=== PATIENT | male | born 1960 | race Caucasian/White ===

== ENCOUNTER 2018-02-25 17:46 | Observation (INO) | payer OTHER ==
[2018-02-25] MEDS ORDERED: ALBUTEROL 60 PUFFS/8 GM MDI IH PRN (19:56)
[2018-02-25] MEDS ORDERED: ALPRAZolam 0.25 MG TAB PO PRN (19:56)
[2018-02-25] MEDS ORDERED: ACETAMINOPHEN 325 MG TAB PO PRN (19:58)
[2018-02-25] MEDS ORDERED: ONDANSETRON 4 MG/2 ML VIAL IVP PRN (19:58)
[2018-02-25] MEDS ORDERED: NITROGLYCERIN 0.4 MG BTL SL PRN (19:59)
--- NOTE | 2018-02-25 20:42 | CPEKG ---
Heart Rate: 72 RR Interval: 833 P-R Interval: 172 QRSD Interval: 148 QT Interval: 420 QTC Interval: 460 P [place]: 55 QRS [place]: 22 T Wave [place]: -40 EKG Severity - ABNORMAL ECG - EKG Impression: SINUS RHYTHM EKG Impression: RIGHT BUNDLE BRANCH BLOCK Electronically Signed By: Chuck Adams 26-Feb-2018 08:32:20
[2018-02-25] MEDS ORDERED: MONTELUKAST SODIUM 10 MG TAB PO SCH (21:00)
[2018-02-25] MEDS: ASPIRIN 81 MG CHEWABLE TAB PO SCH (21:57)
[2018-02-25] MEDS: FLUTICASONE NASAL 120 SPRAYS/16 GM MDI EACHNARE SCH (21:59)
[2018-02-25] MEDS: IPRATROPIUM/ALBUTEROL 3 ML DEYVIAL IH SCH (22:19)
[2018-02-25] MEDS: SODIUM CL NASAL 45 ML BTL EACHNARE SCH (22:20)
--- NOTE | 2018-02-25 22:29 | GHP ---
[f rep st] HISTORY AND PHYSICAL DATE OF ADMISSION: 02/25/2018 CHIEF COMPLAINT: Chest tightness and shortness of breath. HISTORY: The patient is a 57-year-old male who has been having progressive shortness of breath since October. He has also had some associated chest tightness. Through most of this he has assumed this was congestion due to his allergies and postnasal drip from his sinuses but it is just not going ramsey y and the last 2 weeks have been particularly bad. He describes a chest tightness in the middle of h is chest down to the right lower part of his chest that gets much worse with exertion and definitely better with rest. 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 Whenever he tries to play basketball per his usual schedule, he gets severely short of breath. He is exhausted at the end of e very day. He has had sinus congestion, postnasal drip, and his ears have been clogged up ever since October. This will occasionally cause a cough, mostly from postnasal drip. He has a nebulizer and a n inhaler at home although he has never been diagnosed with asthma. He has used them intermittently over this period of time but he has started on Singulair and increased his Claritin dose with some re lief although still remains uncontrolled. The chest pain is mostly nonpleuritic, however he does ene cribe after he runs up a flight of stairs, chest pain will worsen with deep inspiration. He feels ce rtain that he has undiagnosed obstructive sleep apnea because he has all the symptoms but he has neve r gotten a sleep study. Sometimes he will feel both bilateral forearms tingling. PAST MEDICAL HISTORY: 1. Hypertension. 2. Anxiety and panic disorder. 3. Obesity. 4. Gout. 5. Seasonal allergies. 6. Negative cardiac catheterization 2009. 7. Negative CT angiogram for PE 2014. MEDICATIONS: Please see computerized record for full detailed list. ALLERGIES: Codeine and penicillin. SOCIAL HISTORY: Never been a smoker. His mother was a very heavy smoker and of complications o f COPD but he does not remember her smoking much around him or his siblings while he was a child, thi nking that she was being conscientious regarding not exposing them. He occasionally drinks alcohol. He lives with his and they have 16-year-old twins. REVIEW OF SYSTEMS: Complete review of systems obtained. Review of systems negative regarding consti tutional, HEENT, GI, pulmonary, cardiovascular, , hematology, skin, muscular, endocrine, psych exce pt for positives as in HPI. FAMILY HISTORY: His father is still alive at age 91. His mother at age 68 of complications of COPD leading to congestive heart failure and he also suspects she had an underlying lung cancer. PHYSICAL EXAMINATION: GENERAL: Well-developed, well-nourished male, in no acute distress. VITAL SI GNS: Temperature 36.8, pulse 72, blood pressure 128/88, saturating 96% on room air. EYES: Normal c onjunctivae. Pupils react to light. ENT: Normal ears, nose. Hearing intact. Normal teeth. Oroph arynx moist. NECK: Trachea midline. No thyromegaly. CHEST: Normal effort. LUNGS: Clear to ausc ultation bilaterally. Although when he does cough I did elicit some wheeze with forced expiration. CARDIOVASCULAR: Regular rhythm. No murmur. Trace lower extremity edema. ABDOMEN: Soft, nontender . No hepatosplenomegaly. SKIN: Warm, dry, intact. No rash. MUSCULOSKELETAL: No cyanosis or club francisco j. Strength 5/5 upper and lower extremities. NEUROLOGIC: Cranial nerves intact. Normal sensati on to light touch. PSYCH: Alert and oriented x3. Normal affect. Normal judgment. Normal insight. Normal memory. LABORATORY DATA: White count 6.47, hematocrit 44.2, platelets 278. Sodium 141, potassium 4.8, chlor del 105, bicarb 26, BUN 17, creatinine 0.8, glucose 100. LFTs are normal. IMAGING PROCEDURE: EKG viewed by me. My personal interpretation is normal sinus rhythm with right b undle branch block. This right bundle branch block has been present in the past. Chest x-ray is pen ding. I spoke with Dr. Loretta Matthew who saw him in the clinic today and made decision for direct adm ission for further evaluation. ASSESSMENT/PLAN: 1. Chest pain: He has some very concerning features for angina, especially the fact that this chest tightness gets worse with exertion and better with rest. We will follow serial troponins and order a stress test for the morning. 2. Shortness of breath and severe dyspnea on exertion: I did check a D-dimer but it is really not a ll that elevated so I will hold off on a CT angiogram for PE for now. We will check a BNP and an ech ocardiogram to rule out other cardiac etiologies of shortness of breath. I also wonder whether he kadi borges have a very mild reactive airway disease issue and we will start him on a trial of empiric nebulize rs to see if there is any improvement. Will check a respiratory PCR. 3. Chronic sinusitis with postnasal drip: Will initiate Flonase and nasal saline. 4. Morbid obesity: Body mass index is 42. He admits to probably having obstructive sleep apnea but has never had a sleep study. He should pursue this as an outpatient. I would not be surprised if rosa lawler saw some pulmonary hypertension on his echo and this may be contributing to his shortness of breath of presentation. He should also be advised regarding weight loss. 5. Hypertension: Continue lisinopril. 6. Anxiety: Continue Xanax as needed. 7. Allergies: Continue Singulair and Zyrtec. CODE STATUS: Full. ADMISSION STATUS: Will admit to observation. Reevaluate tomorrow regarding ongoing need for hospita lization. DEEP VEIN THROMBOSIS PROPHYLAXIS: He is moderate risk. Will place on subcu Lovenox. /[id number]/MODL
[2018-02-26] MEDS: IPRATROPIUM/ALBUTEROL 3 ML DEYVIAL IH SCH ×4 (05:18→16:33)
[2018-02-26] MEDS ORDERED: CETIRIZINE 10 MG TAB PO SCH ×2 (09:00)
[2018-02-26] MEDS ORDERED: ENOXAPARIN 40 MG/0.4 ML SYR SC SCH ×2 (09:00→10:15)
[2018-02-26] MEDS ORDERED: LISINOPRIL 5 MG TAB PO SCH (09:00)
[2018-02-26] MEDS ORDERED: REGADENOSON 0.4 MG/5 ML SYR IVP ONE (09:40)
[2018-02-26] MEDS ORDERED: IOPAMIDOL (ISOVUE 370) 100 ML BTL IV ONE (10:14)
--- NOTE | 2018-02-26 10:24 | ECHO ---
[email or web address] [address] [address] Main: [phone] Fax: [email or web address] Echocardiogram Name: BÁRBARA ADDISON MR#: [id number] Study Date: 02/26/2018 Study Time: 07:29 AM Date of : 1960 Age: 57 year(s) Height: 182.9 cm (72 in.) Weight: 136.08 kg (300 lb.) BSA: 2.53 m2 Gender: Male Examination: Echo Indication: Shortness of breath Image Quality: Contrast: Requested by: Marge Ramos BP: 142 mmHg/90 mmHg Heart Rate: Rhythm: Indication: Shortness of breath Procedure Staff Assistant Community Manager: Gaston Rocha RDCS Reading Physician: Requesting Provider: Measurements: Chambers Valvular Assessment AV/MV Valvular Assessment TV/PV Normal Normal Normal Name Value Range Name Value Range Name Value Range Ao Nell (MM): 3.0 cm (2.2 cm-3.7 AV Vmax: 1.68 m/s (1 m/s-1.7 PV Vmax: 0.95 m/s (0.6 m/s-0.9 cm) m/s) m/s) IVSd (2D): 0.9 cm (0.6 cm-1.1 AV maxP mmHg ( - ) PV PGmax: 4 mmHg ( - ) cm) AV meanP mmHg ( - ) LVDd (2D): 5.4 cm (4.2 cm-5.9 LVOT Vmax: 0.89 m/s (0.7 m/s-1.1 cm) m/s) LVDs (2D): 3.6 cm (2.1 cm-4 MV E Vmax: 0.63 m/s ( - ) cm) MV A Vmax: 0.77 m/s ( - ) LVPWd (2D): 1.1 cm (0.6 cm-1 MV E/A: 0.82 ( - ) cm) LVEF (2D): 61 (>=54 %) Continued Measurements: Chambers Valvular Assessment AV/MV Name Value Name Value LADs Lon.3 cm MV E' Septal: 0.07 m/s LA Area: 20.9 cm2 MV E/E' Septal: 9.50 LA Volume: 61 ml MV E/E' Lateral: 10.00 LA Volume Index: 24.1 ml/m2 Findings: Left Ventricle: Normal size left ventricle. No LV hypertrophy. Normal global systolic LV function. EF is 61 %. No regional wall motion abnormality. Diastolic dysfunction is present. . Patient: BÁRBARA ADDISON Study Date: 02/26/2018 Page 1 of 2 07:29 AM Right Ventricle: Normal size right ventricle. Normal RV function. Left Atrium: The left atrium is mildly dilated. Right Atrium: The right atrium is normal in size. Mitral Valve: The mitral valve is normal in appearance and function. Trivial mitral valve regurgitation. Aortic Valve: The aortic valve is tri-leaflet. Minimal aortic cusp calcification is noted. Tricuspid Valve: The tricuspid valve is normal in appearance and function. Pulmonic Valve: The pulmonic valve is normal in appearance and function. Aorta: The aorta is normal. Pericardium: No pericardial effusion. (No Signature Object) Patient: BÁRBARA ADDISON Study Date: 02/26/2018 Page 2 of 2 07:29 AM [id number]
--- NOTE | 2018-02-26 11:11 | CPR ---
[f rep st] NONINVASIVE CARDIAC PROCEDURE REPORT DATE OF PROCEDURE: 02/26/2018 PROCEDURE: Exercise nuclear stress test. INDICATION: The patient is a 57-year-old male who presented to the hospital complaining of dyspnea o n exertion and chest pressure. The dyspnea on exertion was first noted approximately 5 months ago. It occurs with minimal exercise such as walking up a flight of stairs. He has experienced similar sy mptoms in the past secondary to allergies, but this is lasting longer and of worsening severity. His risk factors for coronary artery disease include hypertension. PROCEDURE IN DETAIL: Consent was obtained, and the patient was placed on continuous telemetry. His resting EKG revealed normal sinus rhythm with a heart rate of 68. He has a right bundle branch block with ST-T wave changes in V2 through V5. The patient walked on the treadmill for 6 minutes. Early into exercise, he complained of chest pressure which was slightly different than what he had been exp eriencing in the past. His chest discomfort resolved within 3 minutes of exercise. He also had pers istent ST-T wave changes in leads V2 through V5, and new ST changes in the inferior leads. His ST-T wave changes persisted through exercise and into early recovery. He also developed frequent ventricu lar ectopy with multiple ventricular couplets and 1 ventricular triplet in the second stage of the Br uce protocol. He was chest pain free at the time of his arrhythmia. The PVCs resolved early in the recovery phase. His blood pressure at rest was 124/88 and peaked at 190/86. His blood pressure rhina ined elevated 5 minutes into recovery. PLAN: Abnormal exercise treadmill test. I would have a low threshold to proceed with angiogram, trina en his frequent ventricular ectopy in stage II of exertion, as well as early onset of chest discomfor t. Images are currently pending. /[id number]/MODL
[2018-02-26 11:22] VITALS: BP 150/96
[2018-02-26] MEDS: ASPIRIN 81 MG CHEWABLE TAB PO SCH (12:06)
[2018-02-26] MEDS: SODIUM CL NASAL 45 ML BTL EACHNARE SCH (12:07)
[2018-02-26] MEDS: FLUTICASONE NASAL 120 SPRAYS/16 GM MDI EACHNARE SCH (12:07)
[2018-02-26] MEDS ORDERED: predniSONE 20 MG TAB PO ONE (12:41)
[2018-02-26] MEDS ORDERED: DIAZEPAM 5 MG TAB PO ONE (13:35)
[2018-02-26] MEDS ORDERED: diphenhydrAMINE 25 MG CAP PO ONE ×2 (13:35→14:05)
[2018-02-26] MEDS ORDERED: ASPIRIN EC 325 MG TAB PO ONE ×2 (13:35→14:05)
[2018-02-26] MEDS ORDERED: TEMAZEPAM 15 MG CAP PO PRN (13:35)
[2018-02-26] MEDS ORDERED: FAMOTIDINE 20 MG TAB PO ONE (13:35)
[2018-02-26] MEDS ORDERED: FAMOTIDINE 20 MG TAB ONE (14:05)
[2018-02-26] MEDS ORDERED: DIAZEPAM 5 MG TAB ONE (14:06)
[2018-02-26 14:22] LABS: INR 0.96 (0.83-1.16)
--- NOTE | 2018-02-26 14:43 | GCON ---
[f rep st] CONSULTATION CARDIAC CONSULTATION DATE OF CONSULTATION: 02/26/2018 CHIEF COMPLAINT: Shortness of breath with exertion and chest discomfort. HISTORY OF PRESENT ILLNESS: The patient is a 57-year-old male with history of hypertension who prese nted to his primary care doctor, Dr. Loretta Matthew, yesterday with progressive shortness of breath and associated chest tightness. His symptoms started with dyspnea on exertion in October. 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 In October, he was unable to do so be cause he was afraid he was going to have some sort of cardiac event. He has been minimally active, av oiding physical activity if at all possible. He has noted significant shortness of breath and chest p ressure with walking up a flight of stairs. His discomfort does resolve with rest. He has had similar symptoms, secondary to allergies in the past, but this is more severe and persisting longer. On admission to the hospital, his D-dimer was elevated and therefore, he had a pulmonary CT angiogram . It was negative for pulmonary embolus, but did show moderate plaque within the LAD. He also had a n uclear stress test; however, his images were negative for ischemia. On the treadmill, he did develop chest discomfort with early exertion and then frequent ventricular ectopy at stage 2 of the Sky pro tocol. He has had 3 troponins, which were negative. He had a prior coronary angiogram in 2009, by Dr. Brian Nunez, at which time he had normal coronaries. PAST MEDICAL HISTORY: Hypertension, gout. FAMILY HISTORY: Negative for coronary artery disease. SOCIAL HISTORY: He is currently accompanied by his . 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 He den ies any drug use or tobacco use. HOME MEDICATIONS: Lisinopril 5 mg daily, Sudafed p.r.n. singular 10 mg at bedtime, Claritin 10 mg da robb, aspirin 162 mg b.i.d., albuterol p.r.n., Xanax 0.25 mg p.r.n. ALLERGIES: Penicillin and codeine. REVIEW OF SYSTEMS: Negative, except for what is stated in the H and P. PHYSICAL EXAMINATION: GENERAL: Patient appears in no acute distress, but is obese. VITAL SIGNS: Bloo d pressure 150/96, heart rate 94, oxygen saturation 90% on room air, afebrile. LUNGS: Clear to auscul tation. No wheezes, rhonchi, or crackles auscultated. CARDIAC: Regular rate and rhythm without any mu rmurs, rubs, or gallops appreciated. ABDOMEN: Soft, nontender, without organomegaly. EXTREMITIES: Pal pable pulses bilaterally, without any evidence of edema. NEUROLOGIC: Nonfocal. PSYCHIATRIC: Mood and affect appropriate. SKIN: No obvious rashes or ecchymosis identified. LABORATORY/DIAGNOSTIC DATA: Troponin is negative x3. D-dimer 0.77. Triglycerides 230, total choleste rol 184, LDL 106, HDL 32. Chest CT-A was negative for pulmonary embolus but did suggest moderate disease within the LAD. The exercise portion of his nuclear stress test showed diffuse ST, T wave changes, as well as frequen t ventricular ectopy in stage 2 of the Sky protocol. The nuclear images were negative for ischemia. An echocardiogram showed preserved LV function with an ejection fraction of 61% without any significa nt wall motion or valvular abnormalities. His EKG suggests a right bundle branch block with ST, T wave changes in leads V2 through V5. ASSESSMENT: The patient is a 57-year-old male with a history of hypertension who presents with mark canales. He has evidence of coronary artery disease on the basis of a CT scan and an abnormal exercise port ion of a nuclear stress test. PLAN: The patient presented to the hospital with progressive angina. He has been ruled out for an DE with serial cardiac enzymes, but was identified to have coronary disease on the basis of a CT scan. He has moderate disease within the LAD. The nuclear images were normal, but his exercise portion of t he stress test was abnormal. He developed chest discomfort with early exertion, which then resolved. He also had frequent ventricular ectopy and stage 2 of exertion. It is possible that the patient has coronary disease and was able to dilate around his stenosis with exercise. I do think his symptoms and abnormal treadmill test warrant further evaluation with a coron sharmin angiogram. This was discussed with the patient. Medical therapy versus angiogram were discussed a nd he would like to proceed with an angiogram. The risks, benefits, and alternatives of the procedure have been discussed with him today. /[id number]/MODL
[2018-02-26] MEDS ORDERED: VERAPAMIL 5 MG/2 ML VIAL ONE (14:50)
[2018-02-26] MEDS ORDERED: fentaNYL 100 MCG/2 ML INJ ONE (14:50)
[2018-02-26] MEDS ORDERED: LIDOCAINE 1% 300 MG/30 ML SDV ONE (14:50)
[2018-02-26] MEDS ORDERED: MIDAZOLAM 2 MG/2 ML VIAL ONE (14:50)
[2018-02-26] MEDS ORDERED: HEPARIN 10,000 UNIT/10 ML MDV (1,000 UNIT/ML) ONE (14:50)
[2018-02-26] MEDS ORDERED: IOPAMIDOL (ISOVUE-370) 150 ML BTL IV ONE (14:51)
[2018-02-26 14:57] LABS: PLATELET COUNT 214 10^3/uL (150-400)
--- NOTE | 2018-02-26 14:58 | PDHPUP ---
History & Physical Update H&P update statement: This history and physical update is based on an assessment of the patient which was completed after admission or registration (within 24 hours), but prior to the surgery/procedure. H&P update: H&P reviewed & patient examined, no change in patient's condition since H&P completed
--- NOTE | 2018-02-26 15:01 | PDPROPOC ---
Sedation Plan of Care Sedation Plan of Care: vital signs stable, mental status noted, patient educated of risks, benefits, alternatives, patient can tolerate sedation ASA Classification: ASA 4 Planned drugs: fentanyl, other (Etomidate) Mallampati Score: Class 4 Mallampati Reference Image: Patient passed 3-3-2 rule?: No (Probable sleep apnea)
--- NOTE | 2018-02-26 15:34 | PDDXCAT ---
Diagnostic Cath Note - . Date: 02/26/18 Implement Mechanic: Monique Indication: CCC Class III and IV angina on medical treatment, other ( Intermediate risk stress with symptoms on treadmill and PVCs and couplets with exertion....) - Procedure Access: right wrist Procedure: left heart catheterization, coronary angiography, left ventriculogram - Materials Left Heart Cath size: 5F Left Heart Cath materials: standard multipack (JL4, JR4, pigtail), JL3.5 - Findings-Left Heart Catheterization LM: 8mm in size and short. It bifucates into LAD and circumflex system. There are luminal irregulariteis consistent with underlying atherosclerosis. Maximal luminal stenosis is 20%. LAD: The LAD is 6 mm in size. CHINA III flow. LCX: The left circumflex is 4 mm in size. CH[place] III flow. RCA: The RCA is 6 mm in size and dominant. There is a deformity in the proiximal segment. There are proximal luminal irregularities consistent with underlying atherosclerosis. Maximal luminal stenosis is 20%. EDP: The LVEDP is 21 mmHg. LVEF: The EF is normal at 65%. Wall motion: On the LV gram there is normal LV systolic function. The EF is 65% . There are no resting segmental wall motion abnormalities. The visualized portion of the thoracic aortic valve reveals three sinuses of valsalva most consistent with a trileaflet valve. There is no gradient on pullback across the aortic valve. There is no evidence of colin dissection or aneurysm formation. Complications: NONE. Estimated blood loss: <50ml Closure method: TR Band Assessment: The patient has no evidence of obstruction, dissection, or thrombus. His RCA is dominant. There are luminal irregularities consistent with underlying atherosclerosis that will need to be treated medically. Plan: The patient has non-flow limiting coronary disease that should be treated medically to achieve a non-HDL Cholesterol of less than 100 mg/dL and anti platelet therapy with ASA is also recommended specifically a dose of 162 mg per day. His blood pressure also needs to be controlled for a goal systolic pressure of less than 130 mmHg. I recommend the patient treat his sleep apnea as this will help further lower his blood pressure and shortness of breath with exertion. Intervention: NONE. Patient Problems: Problems Problem Status Onset Influenza B Acute
[2018-02-26] MEDS ORDERED: ATROPINE SULFATE 1 MG/10 ML SYR IVP PRN (16:07)
--- NOTE | 2018-02-26 16:42 | PDDCSUM ---
Discharge Summary Discharge Summary: DISCHARGE SUMMARY FOLLOW-UP ITEMS: 1. Discuss initiating statin with patient with goal LDL less than 70 2. Order outpatient pulmonary function test DATE OF ADMISSION: 02/25/2018 DATE OF DISCHARGE: 02/26/2018 DISCHARGE DIAGNOSES: 1. Suspected acute reactive airway exacerbation 2. Nonobstructive chronic coronary artery disease 3. Chronic hypertension 4. Morbid obesity 5. Enteroviral infection CONSULTATIONS: Cardiology PROCEDURES / IMAGING: Cardiac catheterization demonstrating nonobstructive mild coronary artery disease with normal ejection fraction CT angiograms demonstrating no evidence of pulmonary embolism Echocardiogram demonstrating normal wall motion CHIEF COMPLAINT: Acute on chronic shortness of breath SUBJECTIVE: Patient is feeling well at time of discharge, his breathing has been improved with breathing treatments PHYSICAL EXAM ON DISCHARGE: Systolic blood pressure is 131-150, heart rate 60-80, afebrile overnight, satting on room air, alert awake oriented x3, no apparent distress, lungs are clear to auscultation bilaterally with very faint bronchial breath sounds on expiration, no inspiratory crackles, patient is obese, heart rhythm is regular no significant murmurs rubs or gallops LABS ON DISCHARGE: Respiratory viral panel positive for enterovirus and rhinovirus, troponin negative x3, LDL 106, creatinine level normal HOSPITAL COURSE BY PROBLEM: The patient presented with acute worsening of chronic shortness of breath, most likely secondary to acute reactive airway exacerbation provoked by enteroviral infection. I suspect the patient has an underlying reactive airway disease, potentially undiagnosed COPD or asthma with remote secondhand smoke exposure as a child. The patient's airways were reportedly wheezy on expiration on presentation, and he received DuoNeb treatments which significantly improved his symptoms. I have also provided him with a 5 day burst prednisone 40 mg daily and a prescription for albuterol/ipratroprium as needed to be used with his home nebulizer. The patient will also continue all of his home over-the- counter medications for allergic rhinitis, which seems to also exacerbate his respiratory symptoms. Advise the patient to limit his use of Sudafed if possible, as well as cycle in a different antihistamine to gauge effect. I have also recommended that he utilize intranasal fluticasone regularly, in order to wean himself off the Sudafed. He will continue to work on these strategies with his primary care provider. The patient did undergo evaluation to rule out acute coronary syndrome with negative troponin x3, and he underwent nuclear medicine stress test to rule out obstructive coronary disease. His stress test did demonstrate frequent ectopy with PVCs, and after discussion with Cardiology, it was decided that a cardiac catheterization should be pursued to rule out obstructive disease. Cardiac catheterization demonstrated mild nonobstructive CAD, with preserved ejection fraction, and no focal stenosis. Consequently, Dr. Amaya recommended medical management with ongoing use of daily aspirin, optimization of his antihypertensive medication (increase lisinopril from 5 mg daily to 10 mg daily and gauge effect), and treat his LDL to a goal of 70. The patient should discussed possible statin therapy with his primary care provider. DISCHARGE MEDICATIONS: Please see official discharge medication reconciliation sheet in chart , continue home dose of aspirin, increase lisinopril to 10 mg daily, duo nebs as needed every 6 hr, prednisone 40 mg for 4 subsequent days, fluticasone daily. DISCHARGE INSTRUCTIONS: Please follow up with primary care provider within 3-5 days.
== END 2018-02-26 18:22 | disposition home or self-care (01) ==
LOC: F2W 18:47 → UNDODISOB 02-26 16:45
PROVIDERS: ADMIT Internal Medicine; ATTEND Internal Medicine
DX: I25.119 Atherosclerotic heart disease of native coronary artery with unspecified angina pectoris (principal); R06.02 Shortness of breath; B34.8 Other viral infections of unspecified site; B34.1 Enterovirus infection, unspecified; I10 Essential (primary) hypertension; J32.9 Chronic sinusitis, unspecified; F41.8 Other specified anxiety disorders; M10.9 Gout, unspecified; E66.01 Morbid (severe) obesity due to excess calories; Z68.41 Body mass index [BMI] 40.0-44.9, adult
CPT/HCPCS: 71045; 71275; 78452; 93005; 93017; 93306; 93458; A9500; G0378; J1644; J2250; J2785; J3010; J7512; Q9967